=== PATIENT | male | born 1950 | race Caucasian/White ===

== ENCOUNTER 2023-03-04 18:34 | Inpatient (IN) | payer MEDICARE, OTHER, SELFPAY ==
[2023-03-04] VITALS (11 sets, daily range): BP systolic 166–191; BP diastolic 97–133; PULSE 94–147; RESP 16–40; TEMP 36.4–36.6; O2SAT 94–99; BMI 43.0; BMI 44.9
--- NOTE | 2023-03-04 18:52 | ED.VIS.DYS ---
HPI History of Present Illness Chief Complaint: Shortness of Breath [facility] Medical History (Updated 03/04/23 @ 22:[address] Melita Alfaro MD) Aortic disease Carotid arterial disease Former tobacco use HLD (hyperlipidemia) HTN (hypertension) Morbid obesity EMANI on CPAP PAF (paroxysmal atrial fibrillation) Home Medications amlodipine 10 mg tablet 10 mg PO DAILY 03/04/23 [History Last Taken Unknown] aspirin 325 mg capsule 325 mg PO DAILY 03/04/23 [History Last Taken Unknown] furosemide 20 mg tablet 20 mg PO QODAY 03/04/23 [History Last Taken Unknown] metoprolol succinate 25 mg tablet,extended release 24 hr 50 mg PO DAILY 03/04/23 [History Last Taken Unknown] psyllium husk 0.4 gram capsule (Metamucil) 0.4 g PO DAILY 03/04/23 [History Last Taken Unknown] Allergy/AdvReac Type Severity Reaction Status Date / Time Penicillins Allergy Mild Other Verified 03/04/23 19:18 Family History (Updated 03/04/23 @ 22:[address] Melita Alfaro MD) Mother CAD (coronary artery disease) Heart disease Hypertension Myocardial infarction Father CAD (coronary artery disease) Heart disease Hypertension Myocardial infarction Brother CAD (coronary artery disease) Heart disease Hypertension Myocardial infarction Surgical History (Updated 03/04/23 @ 22:[address] Melita Alfaro MD) History of cholecystectomy History of endovascular stent graft for abdominal aortic aneurysm History of left-sided carotid endarterectomy History of total left knee replacement Social History (Updated 03/04/23 @ 22:[address] Melita Alfaro MD) household members: spouse Smoking Status: Former smoker how long ago did patient quit smoking: Quit 2005, smoked 3 ppd from 15 y/o until quit. alcohol intake: never substance use type: does not use EXAM Physical Exam Const Vital Signs: 03/04/23 18:37 03/04/23 18:40 03/04/23 19:13 Temperature 97.6 F L Temperature Source Temporal Pulse Rate 104 H Respiratory Rate 21 H Respiratory Effort Short of Breath Labored Respiratory Depth Shallow Respiratory Pattern Tachypnea Blood Pressure 166/113 H Blood Pressure Mean 130 Pulse Ox 99 Oxygen Delivery Method Non-Rebreather Non-Rebreather Bi-pap Oxygen Flow Rate (L/min) 15 Fraction of Inspired Oxygen (FIO2) 40 03/04/23 19:16 03/04/23 19:08 03/04/23 19:45 Temperature 97.8 F Temperature Source Temporal Pulse Rate 103 H 110 H Respiratory Rate 29 H 28 H Respiratory Effort Respiratory Depth Respiratory Pattern Blood Pressure 175/121 H 187/102 H Blood Pressure Mean 139 123 Pulse Ox 95 94 95 Oxygen Delivery Method Bi-pap Oxygen Flow Rate (L/min) Fraction of Inspired Oxygen (FIO2) 40 03/04/23 20:30 03/04/23 21:15 03/04/23 21:33 Temperature Temperature Source Pulse Rate 97 101 H Respiratory Rate 22 H 18 Respiratory Effort Respiratory Depth Respiratory Pattern Blood Pressure 182/101 H 184/111 H Blood Pressure Mean 117 135 Pulse Ox 97 99 98 Oxygen Delivery Method Oxygen Flow Rate (L/min) Fraction of Inspired Oxygen (FIO2) 03/04/23 21:40 03/04/23 21:15 03/04/23 22:15 Temperature Temperature Source Pulse Rate 94 Respiratory Rate 16 Respiratory Effort Respiratory Depth Respiratory Pattern Blood Pressure 182/97 H Blood Pressure Mean 117 Pulse Ox 96 98 97 Oxygen Delivery Method Nasal Cannula Bi-pap Oxygen Flow Rate (L/min) 4 Fraction of Inspired Oxygen (FIO2) 30 MDM MDM MDM Narrative Medical decision making narrative: HISTORY OF PRESENT ILLNESS: 73-year-old male here with shortness of breath, cough. Notes acute onset of shortness of breath earlier this afternoon. States he has no chest pain. No bleeding diathesis. Does note lower extremity edema that is worse. Notes paroxysmal nocturnal dyspnea. Denies history of heart failure or heart attack. The patient denies recent surgery in the last 4 weeks or immobilization in the last 3 days, denies previous diagnosis of DVT or PE, hemoptysis, unilateral leg swelling or malignancy with treatment the last 6 months or palliative. No estrogen use noted. REVIEW OF SYSTEMS: Pertinent positives: Shortness of breath, lower extremity edema, cough Pertinent negatives: Chest pain, unilateral leg swelling or hemoptysis PHYSICAL EXAM: Nursing triage notes reviewed, Vital signs reviewed Constitutional: please see mdm HENT: MMM Eyes: Pupils equal round and reactive to light, Extraocular muscles intact Neck: No stridor, no JVD, full neck ROM Lungs: Acute respiratory distress, increased work of breathing, conversational dyspnea, tripoding, rales noted bilaterally no wheezing Heart: Regular rate and rhythm, No murmurs, No rubs and No gallops, 2+ distal pulses (radial, femoral, posterior tibial) in all extremities Abdomen: Soft, there is no tenderness, rigidity, rebound or guarding, no obvious peritoneal signs, no palpable pulsatile abdominal masses, no auscultated abdominal bruit : No CVAT Extremities: 2+ pitting edema in bilateral lower extremities Neuro: No focal neurological deficits, cranial nerves II through XII intact, 5/5 strength in all extremities. Intact sensation to light touch in all extremities, 2+ reflexes bilateral patella tendons. Normal gait. No ataxia. Skin: No rash or lesions noted MEDICAL DECISION MAKING: Chief Complaint: [Shortness of breath External records reviewed: No recent cardiac catheterizations echocardiograms are just as noted Factors affecting care: EMANI Social determinants of health: none History obtained from others: Patient's Consults: Internal medicine MDM Narrative: Patient was initially hypertensive, tachypneic requiring nonrebreather for appropriate oxygenation. He had increased work of breathing he had stenting accessory muscle use acute respiratory distress or rales noted bilateral lung bases. I considered the following differential diagnosis: CHF exacerbation, COVID, flu, pneumonia, ACS, arrhythmia, PE, anemia Patient is low risk Wells score in addition to this he had focal lung findings which makes PE less likely. Patient for D-dimer or CT at this time. Given his increased work of breathing he was placed on BiPAP immediately. He was given a dose of 60 mg IV Lasix for diuresis ALL IMAGES (IF OBTAINED) HAVE BEEN PERSONALLY REVIEWED AND INTERPRETED BY MYSELF. Chest x-ray was read reviewed by myself and shows bilateral pulmonary edema consistent with likely heart failure exacerbation EKG with sinus tachycardia, normal axis, prolonged QT interval, no obvious ischemic changes High-sensitivity troponin is negative, no evidence of myocardial ischemia VBG without evidence of respiratory acidosis or significant CO2 retention BNP elevated consistent with increased volume overload, myocyte stretch BMP shows no significant electrolyte abnormalities, noted PAOLA The synthesis the patient's history, physical exam labs images are consistent with acute respiratory failure secondary to likely CHF exacerbation. Given presence of BiPAP patient likely needs PCU for further diuresis. The patient and/or family, caregivers express understanding. The patient and/or family, caregivers agrees with the plan. Shared decision making: I will have a discussion with the patient and or visitors regarding risk/benefits of further testing or admission. They will be made aware of of the risk/benefits inherent in this decision they will be given the opportunity to voice understanding. Total critical care time today provided was at least 35 minutes. This excludes separately billable procedures. Critical care time (if documented) is secondary to the patient having high probability of clinically significant/life threatening deterioration in the patient's condition which required my urgent intervention. Impression: 1. Acute respiratory failure 2. Tachycardia 3. Tachypnea 4. Hypertension 5. Acute CHF exacerbation 6. Acute kidney injury Dispo: admit To PCU Lab Data Labs: Laboratory Results - last 24 hr 03/04/23 19:05 WBC 10.9 RBC 4.03 L Hgb 11.3 L Hct 36.1 L MCV 89.6 MCH 28.0 MCHC 31.3 L RDW Std Deviation 43.9 RDW Coeff of Frankie 13.3 Plt Count 366 MPV 9.5 Immature Gran % (Auto) 0.500 Neut % (Auto) 70.8 H Lymph % (Auto) 13.7 L [place] % (Auto) 9.6 Eos % (Auto) 4.6 Baso % (Auto) 0.8 Absolute Neuts (auto) 7.8 H Absolute Lymphs (auto) 1.50 Nucleated RBC % 0 Sodium 136 Potassium 3.7 Chloride 103 Carbon Dioxide 28.0 Anion Gap 5 BUN 26 H Creatinine 2.10 H Estim Creat Clear Calc 34.39 Est GFR (MDRD) Af Amer 40 L Est GFR (MDRD) Non-Af 33 L BUN/Creatinine Ratio 12.4 Glucose 126 H Calcium 9.1 Troponin I High Sens 47 B-Natriuretic Peptide 281.6 H ABG Data ABG results: ABG 03/04/23 19:07 Specimen Type KARLOS Sample Site Not entered O2 % 40.0 VBG pH 7.37 VBG pO2 58 H VBG HCO3 29 H VBG Total CO2 30 VBG O2 Sat (Calc) 89 H VBG Base Excess 3 POC Mix VBG pCO2 Pt Tmp 49.6 O2 Delivery Device BiPAP Clinical Comments 12. 6. 40% Radiography Diagnostic Testing: Clinical Impression(s) from Imaging Studies Chest X-Ray 03/04/23 19:10 IMPRESSION: Bilateral patchy airspace and interstitial opacities concerning for infection and/or edema. Electronically Signed: Kev Banuelos MD at 20:05 EST , Discharge Plan Triage Chief Complaint: Shortness of Breath ED Provider: Smith Whitney Dx/Rx/DC Orders Primary Care Provider: Juan Walker
--- NOTE | 2023-03-04 18:59 | EKG12_ITS ---
Test Reason : SOB Blood Pressure : / mmHG Vent. Rate : 108 BPM Atrial Rate : 108 BPM P-R Int : 146 ms QRS Dur : 082 ms QT Int : 364 ms P-R-T Axes : 059 -04 049 degrees QTc Int : 487 ms Sinus tachycardia Nonspecific ST abnormality Abnormal ECG Confirmed by EDUARDO FINNEY, LUZ MARINA ([id number]), field map editor NAKITA GARDNER ([id number]) on 03/08/2023 2:02:03 P M Referred By: Confirmed By:DALE CLARK MD
--- NOTE | 2023-03-04 19:10 | RAD_ITS ---
INDICATION: SOB EXAMINATION/TECHNIQUE:
[2023-03-04 19:11] LABS: Blood Gas Specimen Type VEN; O2 Delivery Device BiPAP; SITE Not entered; VBG BASE EXCESS 3 mmol/L (-1.0-3.5); VBG Bicarbonate 29 mmol/L (22-26); VBG PO2 58 mmHg (25-40); VBG SO2 89 % (50-70); VBG TCO2 30 mmol/L (23-33); VBG pCO2 49.6 mmHg (41-51); VBG pH 7.37 (7.32-7.42)
[2023-03-04 19:14] LABS: Absolute Neutrophil Count 7.8 X10^3/uL (2.0-7.7); Basophil# 0.09 X10^3/uL; Basophil% 0.8 % (0-1); Eosinophils% 4.6 % (0-5); Hematocrit 36.1 % (40-54); Hemoglobin 11.3 g/dL (13.0-16.5); Lymphocyte % 13.7 % (19-41); Mean Corp Hgb Conc 31.3 g/dL (32-36); Mean Corpuscular Volume 89.6 fL (80-94); Mean Platelet Vol. 9.5 fl (6.2-12.0); Monocyte# 1.05 X10^3/uL; Monocyte% 9.6 % (0-10); NRBC Flagged by Analyzer 0 % (0-5); Neutrophil # 7.75 X10^3/uL (2.7-7.7); Neutrophil % 70.8 % (47-70); Platelet Count 366 K/mm3 (150-450); RBC Distribution Width CV 13.3 % (11.6-14.6); RBC Distribution Width SD 43.9 fl (35.1-43.9); Red Blood Count 4.03 M/mm3 (4.6-6.2); White Blood Count 10.9 K/mm3 (4.4-11.0)
[2023-03-04 19:41] LABS: Anion Gap 5 (5-15); BNP,B-Type NATRIURETIC PEPTIDE 281.6 pg/mL (0-100); BUN 26 mg/dL (7-18); BUN/Creat Ratio 12.4 RATIO (10-20); Calcium,Total 9.1 mg/dL (8.5-10.1); Chloride 103 mmol/L (98-107); EST Glomerular Filtration Rate 33 mL/min (>60); Est Glom Filt Rate - Afr Amer 40 mL/min (>60); Estimated Creatinine Clearance 34.39 ml/min; Glucose 126 mg/dL (74-106); Potassium 3.7 mmol/L (3.5-5.1); Sodium Level 136 mmol/L (136-145); Troponin-I HS 47 pg/mL (3.0-78.0)
[2023-03-04] MEDS: Furosemide 100 MG/10 ML Vial 60 MG IV (20:38)
--- NOTE | 2023-03-04 21:29 | PCM.HP.STD ---
HPI - General General Date of Admission: 03/04/23 Date of Service: 03/04/23 Chief Complaint: Dyspnea, sudden. HPI Narrative The patient is a 73 y/o M w/ PMHx: Former heavy tobacco use, Carotid disease/Aortic disease s/p L CEA and aortic stent placement, Morbid obesity, HTN, HLD, PAF, EMANI on CPAP who presents to the [facility] ED on 03/04/23 with history of significant onset acute dyspnea earlier in the afternoon with mild nonproductive cough with increased lower extremity swelling as well as paroxysmal nocturnal dyspnea and orthopnea with no associated chest discomfort prompting eventual ED evaluation. In the ED per ED physician patient in evident respiratory distress with increased work of breathing, conversational dyspnea, tripoding, rales prompting immediate transition to BiPAP. Workup in the ED included T97.6, heart rate 106, BP initially 166/113 with most recent repeat 182/101, respiratory rate 21, initially 99% presenting on a nonrebreather with 15 L transition eventually to BiPAP noted to be 95% on BiPAP with 40% FiO2 chest x-ray with bilateral patchy airspace and interstitial opacities concerning for infection and/or edema, CBC with WBC 10.9, hemoglobin 11.3, MCV 89.6, platelet 366 with left shift, VBG with pO2 58, bicarb 29, O2 saturation 89% on BiPAP, BMP with BUN/creatinine 26/2.10, glucose 126, troponin 47, BNP 281.6, rapid SARS COVID and influenza antigens negative, EKG with sinus tachycardia with no acute evidence of ischemia. In the ED patient ministered Lasix 60 mg IV x 1. Following diuresis and prolonged BiPAP patient feels significantly improved and is able to come off of BiPAP with significant respiratory improvement. [facility] Medical History (Updated 03/04/23 @ 22:[address] Melita Alfaro MD) Aortic disease Carotid arterial disease Former tobacco use HLD (hyperlipidemia) HTN (hypertension) Morbid obesity EMANI on CPAP PAF (paroxysmal atrial fibrillation) Home Medications amlodipine 10 mg tablet 10 mg PO DAILY 03/04/23 [History Last Taken Unknown] aspirin 325 mg capsule 325 mg PO DAILY 03/04/23 [History Last Taken Unknown] furosemide 20 mg tablet 20 mg PO QODAY 03/04/23 [History Last Taken Unknown] metoprolol succinate 25 mg tablet,extended release 24 hr 50 mg PO DAILY 03/04/23 [History Last Taken Unknown] psyllium husk 0.4 gram capsule (Metamucil) 0.4 g PO DAILY 03/04/23 [History Last Taken Unknown] Allergy/AdvReac Type Severity Reaction Status Date / Time Penicillins Allergy Mild Other Verified 03/04/23 19:18 Family History (Updated 03/04/23 @ 22:[address] Melita Alfaro MD) Mother CAD (coronary artery disease) Heart disease Hypertension Myocardial infarction Father CAD (coronary artery disease) Heart disease Hypertension Myocardial infarction Brother CAD (coronary artery disease) Heart disease Hypertension Myocardial infarction Surgical History (Updated 03/04/23 @ 22:[address] Melita Alfaro MD) History of cholecystectomy History of endovascular stent graft for abdominal aortic aneurysm History of left-sided carotid endarterectomy History of total left knee replacement Social History (Updated 03/04/23 @ 22:[address] Melita Alfaro MD) household members: spouse Smoking Status: Former smoker how long ago did patient quit smoking: Quit 2005, smoked 3 ppd from 15 y/o until quit. alcohol intake: never substance use type: does not use ROS ROS Narrative Admission Review of Systems: CONSTITUTIONAL: No weight loss, fever, chills, + weakness or fatigue. HEENT: Eyes: No visual loss, blurred vision, double vision or yellow sclerae. Ears, Nose, Throat: No hearing loss, sneezing, congestion, runny nose or sore throat. SKIN: No rash or itching, lesions, wounds. CARDIOVASCULAR: + Orthopnea, edema, paroxysmal nocturnal dyspnea. No chest pain, chest pressure or chest discomfort, palpitations, syncopal events. RESPIRATORY: + Shortness of breath, cough without marked sputum. No wheezing, hemoptysis. GASTROINTESTINAL: No anorexia, nausea, vomiting or diarrhea, abdominal pain, melena, BRBPR. GENITOURINARY: No dysuria, frequency, urgency or retention. NEUROLOGICAL: No headache, dizziness, syncope, paralysis, ataxia, numbness or tingling in the extremities, focal weakness, change in bowel or bladder control, seizure. MUSCULOSKELETAL: + muscle, back pain, joint pain or stiffness. HEMATOLOGIC: No anemia, + easy bleeding/bruising. LYMPHATICS: No enlarged nodes. No history of splenectomy. PSYCHIATRIC: No history of depression or anxiety. ENDOCRINOLOGIC: No reports of sweating, cold or heat intolerance. No polyuria or polydipsia. ALLERGIES: No history of asthma, hives, eczema or rhinitis. Vital Signs Vital Signs Vital Signs: 03/04/23 18:37 03/04/23 18:40 03/04/23 19:13 Temperature 97.6 F L Temperature Source Temporal Pulse Rate 104 H Respiratory Rate 21 H Respiratory Effort Short of Breath Labored Respiratory Depth Shallow Respiratory Pattern Tachypnea Blood Pressure 166/113 H Blood Pressure Mean 130 Pulse Ox 99 Oxygen Delivery Method Non-Rebreather Non-Rebreather Bi-pap Oxygen Flow Rate (L/min) 15 Fraction of Inspired Oxygen (FIO2) 40 03/04/23 19:16 03/04/23 19:08 03/04/23 19:45 Temperature 97.8 F Temperature Source Temporal Pulse Rate 103 H 110 H Respiratory Rate 29 H 28 H Respiratory Effort Respiratory Depth Respiratory Pattern Blood Pressure 175/121 H 187/102 H Blood Pressure Mean 139 123 Pulse Ox 95 94 95 Oxygen Delivery Method Bi-pap Oxygen Flow Rate (L/min) Fraction of Inspired Oxygen (FIO2) 40 03/04/23 20:30 03/04/23 21:15 Temperature Temperature Source Pulse Rate 97 Respiratory Rate 22 H Respiratory Effort Respiratory Depth Respiratory Pattern Blood Pressure 182/101 H Blood Pressure Mean 117 Pulse Ox 97 99 Oxygen Delivery Method Oxygen Flow Rate (L/min) Fraction of Inspired Oxygen (FIO2) Weight Weight: 316 lb 12.868 oz Body Mass Index (BMI) 43.0 Physical Exam Narrative Physical Examination: General: Awake, alert, oriented x 3 and cooperative, seated upright in the ED bed significantly improved since initial ED arrival as he had been in respiratory distress requiring immediate BiPAP with tripoding, conversational dyspnea but now is off BiPAP and able to speak in sentences with no evidence of respiratory distress. Skin: Normal color, normal turgor, no icterus, no cyanosis except for bilateral lower extremity mild venous stasis disease, occasional staged ecchymoses HEENT: AT/NC, EOMI, PERRLA, mildly dry MM with recent BiPAP removal, no carotid bruits, +JVD noted. Lungs: Diminished, greater bases, bilateral rales noted, respiratory status significantly improved, respiratory distress had been noted upon admission with hypoxic respiratory failure, currently now transitioning off BiPAP with marked improvement with no recurrent tripoding or conversational dyspnea or increased work of breathing noted, no rhonchi or wheezing. Heart: Currently regular rate and rhythm; no gallop, rub audible. Abdomen: Soft, morbidly obese, NTTP, distant normal BS, unable to discern HSM or marked distention well given morbidly obese status. Extremities: No cyanosis, no clubbing, notable pedal to proximal pisano pitting edema bilaterally. Neurological: Patient awake, alert, oriented as noted, cognitive function intact; pupils equally reactive to light and accommodation, cranial nerves grossly normal, moving all 4 extremities, no focal deficits, strength improving, moderately to severely global decrease, significantly improved since respiratory failure/distress resolving. Psychiatric: Affect appears fatigued, no acute evidence of depressive or anxiety feelings. Results Lab / Micro Data 03/04/23 19:05 03/04/23 19:05 Labs: Laboratory Results - last 24 hr 03/04/23 19:05: WBC 10.9, RBC 4.03 L, Hgb 11.3 L, Hct 36.1 L, MCV 89.6, MCH 28.0, MCHC 31.3 L, RDW Std Deviation 43.9, RDW Coeff of Frankie 13.3, Plt Count 366, MPV 9.5, Immature Gran % (Auto) 0.500, Neut % (Auto) 70.8 H, Lymph % (Auto) 13.7 L, [place] % (Auto) 9.6, Eos % (Auto) 4.6, Baso % (Auto) 0.8, Absolute Neuts (auto) 7.8 H, Absolute Lymphs (auto) 1.50, Nucleated RBC % 0, Sodium 136, Potassium 3.7, Chloride 103, Carbon Dioxide 28.0, Anion Gap 5, BUN 26 H, Creatinine 2.10 H, Estim Creat Clear Calc 34.39, Est GFR (MDRD) Af Amer 40 L, Est GFR (MDRD) Non-Af 33 L, BUN/Creatinine Ratio 12.4, Glucose 126 H, Calcium 9.1, Troponin I High Sens 47, B-Natriuretic Peptide 281.6 H Micro: Microbiology 03/04/23 19:05 Nasal Secretion SARS-CoV-2 & FLU Antigen (Rapid) - Final ABG Data ABG results: ABG 03/04/23 19:07 Specimen Type KARLOS Sample Site Not entered O2 % 40.0 VBG pH 7.37 VBG pO2 58 H VBG HCO3 29 H VBG Total CO2 30 VBG O2 Sat (Calc) 89 H VBG Base Excess 3 POC Mix VBG pCO2 Pt Tmp 49.6 O2 Delivery Device BiPAP Clinical Comments 12. 6. 40% Imagaing Radiology Impression Chest X-Ray 03/04/23 19:10 IMPRESSION: Bilateral patchy airspace and interstitial opacities concerning for infection and/or edema. Electronically Signed: Kev Banuelos MD at 20:05 EST , Assessment & Plan Assessment/Plan (1) Heart failure: (2) Acute hypoxic respiratory failure: PLAN: Plan The patient is a 73 y/o M w/ PMHx: Former heavy tobacco use, Carotid disease/Aortic disease s/p L CEA and aortic stent placement, Morbid obesity, HTN, HLD, PAF, EMANI on CPAP who presents to the [facility] ED on 03/04/23 with history of significant onset acute dyspnea earlier in the afternoon with mild nonproductive cough with increased lower extremity swelling as well as paroxysmal nocturnal dyspnea and orthopnea with no associated chest discomfort prompting eventual ED evaluation. In the ED per ED physician patient in evident respiratory distress with increased work of breathing, conversational dyspnea, tripoding, rales prompting immediate transition to BiPAP. #1. Acute Hypoxic Respiratory Failure suspected secondary to Acute Decompensated HF, Unclear type; low suspicion PNA: Will admit to PCU given notable improvement on BIPAP in the ED, will maintain on cardiac telemetry, obtain cardiac enzyme series, obtain serial EKGs, initiate IV lasix diuresis, monitor I/Os, continue medical therapy w/ asa, add statin, continue BB, obtain TSH and magnesium level, obtain ECHO, procalcitonin requested and if any inclination of infectious etiology if appropriate will start abx therapy. #2. PAOLA versus Acute Renal Insufficiency versus Chronic Kidney Disease Stage III unclear subtype as patient with no clear baseline labs in the system: Admission BUN/Cr 26/2.10, baseline renal function as noted unknown with GFR at this point 33 and creatinine clearance 34.39 this certainly could be chronic but unclear, will hold nephrotoxic medication aside from diuresis if necessary with repeat CMP in a.m. to further elucidate if this is chronic or acute, repeat BMP in AM. #3. PAF: We will continue patient home metoprolol regimen, from outpatient list does not appear the patient is chronically anticoagulated, unclear specific etiology, until ascertain will continue just chemoprophylaxis as noted. #4. Hypertension: Continue home regimen including amlodipine, metoprolol, IV Lasix as noted, PRN hydralazine. #5. Hyperlipidemia: Not on statin therapy, adding given presentation as noted, FLP in AM. #6. Suspected chronic normocytic anemia: Admission hemoglobin 11.3, MCV 89.6, unclear baseline however, will trend CBC and further investigate pending trend. #7. Hyperglycemia, mild: Admission glucose 126, minimally elevated, will repeat CMP in a.m. if further elevated may consider hemoglobin A1c assessment. #8. Morbid Obesity: Weight loss and lifestyle changes encouraged, nutrition consulted. #9. EMANI: Usually uses CPAP nightly, given improvement will transition off BIPAP to q HS CPAP. #10. Former heavy tobacco use: Encourage continued tobacco cessation. #11. DVT Prophylaxis: Heparin. #12. CODE status: Patient THEODORA is his who is present and living will is currently in place. Discussed CODE status at length including difference between FULL code, DNR-CCA and DNR-CC status. Following discussions about the differences in these status, requested Full Code status. Advanced Care Planning Face to Face Time: 16 minutes. Charges/Coding Visit Charges Inpatient E&M: 51405 Init Hosp L3 Procedures Hospitalists Procedures: 34845 Advncd Care Plan 30 Min
--- NOTE | 2023-03-04 21:40 | CPS ---
pt placed on 4 l/m via nc per dr castro
--- NOTE | 2023-03-04 22:52 | ECHOD_ITS ---
Reason For Study: CHF Procedure This was a 2D Doppler, Color Flow transthoracic echocardiogram. Exam performed portable in ICU/CCU. Left Ventricle Normal LV size. The estimated ejection fraction is 65 %. Unable to assess diastolic dysfunction. No regional wall motion abnormalities noted. Right Ventricle Normal RV size. Normal systolic function. Atria Normal left atrium. Normal right atrium. No doppler evidence for ASD. Mitral Valve There is severe mitral annular calcification. There is no mitral valve stenosis. No mitral valve insufficiency. Tricuspid Valve There is no tricuspid stenosis. Trivial tricuspid valve insufficiency. Unable to estimate RV systolic pressure due to insufficient tricuspid regurgitant envelope. Aortic Valve Moderate diffuse aortic valve thickening. Mild aortic stenosis. No aortic valve insufficiency. Pulmonic Valve There is no pulmonic valvular stenosis. No pulmonic valve insufficiency. Great Vessels Normal aortic root. Pericardium/Pleural No pericardial effusion. MMode/2D Measurements & Calculations LVIDd: 3.7 cm IVSd: 1.8 cm LVOT diam: 2.1 cm LVIDs: 2.5 cm LVPWd: 1.4 cm LVOT area: 3.5 cm2 RVDd: 3.8 cm FS: 33.8 % Ao root diam: 2.9 cm LAV(MOD-bp): 79.7 ml LA A4 area: 27.7 cm2 LAV(MOD-bp) Indexed: 31.3 ml/m2 LAV(MOD-sp2): 67.5 ml LAV(MOD-sp4): 91.1 ml LA dimension(2D): 4.5 cm TAPSE: 2.6 cm RA A4 area: 18.4 cm2 Time Measurements MV dec time: 0.28 sec Doppler Measurements & Calculations MV E max jay: 124.3 cm/sec Lat Peak E' Jay: 8.2 cm/sec Med Peak E' Jay: 6.3 cm/sec MV A max jay: 146.9 cm/sec E/E' lat: 15.1 E/E' med: 19.7 MV E/A: 0.85 MV V2 max: 164.6 cm/sec MV dec slope: 441.0 cm/sec2 Ao V2 max: 247.3 cm/sec MV max P.8 mmHg Ao max P.5 mmHg MV V2 mean: 120.0 cm/sec Ao V2 mean: 185.4 cm/sec MV mean P.2 mmHg Ao mean P.7 mmHg MV V2 VTI: 40.9 cm Ao V2 VTI: 51.8 cm MVA(VTI): 2.1 cm2 AV (velocity ratio): 0.48 EMILY(I,D): 1.7 cm2 EMILY(V,D): 1.6 cm2 LV V1 max: 113.7 cm/sec SV(LVOT): 86.6 ml PA V2 max: 89.9 cm/sec LV V1 max P.2 mmHg LV V1 mean P.1 mmHg LV V1 mean: 84.2 cm/sec LV V1 VTI: 24.6 cm TR max jay: 331.5 cm/sec TR max P.0 mmHg ECHO/Echo Complete Interpretation Summary The estimated ejection fraction is 65 %. Unable to assess diastolic dysfunction. Mild aortic stenosis. Ordering Physician: Melita Alfaro Referring Physician: Juan Walker Performed By: Greta Beasley, JR, RVT
[2023-03-04] MEDS: Metoprolol(XL)Succ 50 MG Tablet PO (23:35)
[2023-03-04 23:59] LABS: Magnesium 2.4 mg/dL (1.6-2.6)
[2023-03-05] VITALS (11 sets, daily range): BP systolic 134–204; BP diastolic 84–104; PULSE 79–110; RESP 16–18; TEMP 36.3–36.9; O2SAT 95–99; BMI 44.8
[2023-03-05] LABS: Troponin-I HS 61 pg/mL (3.0-78.0)
[2023-03-05 00:06] LABS: Procalcitonin 0.09 ng/mL (0.00-0.09)
--- NOTE | 2023-03-05 01:02 | EKG12_ITS ---
Test Reason : Blood Pressure : / mmHG Vent. Rate : 097 BPM Atrial Rate : 097 BPM P-R Int : 166 ms QRS Dur : 080 ms QT Int : 392 ms P-R-T Axes : 052 -13 045 degrees QTc Int : 497 ms Normal sinus rhythm Nonspecific ST abnormality Prolonged QT Abnormal ECG No previous ECGs available Confirmed by JENNIFER FINNEY, MEDINA ([id number]), editorial clerk NAKITA GARDNER ([id number]) on 03/09/2023 11:19:44 AM Referred By: Confirmed By:MEDINA RODRIGUEZ MD
--- NOTE | 2023-03-05 01:03 | EKG12_ITS ---
Test Reason : Blood Pressure : / mmHG Vent. Rate : 095 BPM Atrial Rate : 095 BPM P-R Int : 162 ms QRS Dur : 082 ms QT Int : 382 ms P-R-T Axes : 042 -13 061 degrees QTc Int : 480 ms Sinus rhythm with Premature supraventricular complexes Prolonged QT Abnormal ECG No previous ECGs available Confirmed by JENNIFER FINNEY, MEDINA ([id number]), slot editor NAKITA GARDNER ([id number]) on 03/09/2023 11:20:20 AM Referred By: Confirmed By:MEDINA RODRIGUEZ MD
[2023-03-05] MEDS: hydrALAZINE 20 MG/ML Vial 10 MG IV ×2 (01:21→06:27)
[2023-03-05 01:52] LABS: Troponin-I HS 68 pg/mL (3.0-78.0)
[2023-03-05 04:16] LABS: Absolute Lymphocyte Count 1.29 X10^3/uL (0.83-4.51); Absolute Neutrophil Count 8.1 X10^3/uL (2.0-7.7); Basophil# 0.09 X10^3/uL; Basophil% 0.8 % (0-1); Eosinophil# 0.42 X10^3/uL; Eosinophils% 3.8 % (0-5); Hematocrit 35.8 % (40-54); Hemoglobin 11.4 g/dL (13.0-16.5); Lymphocyte # 1.29 X10^3/ul (0.83-4.51); Lymphocyte % 11.7 % (19-41); Mean Corp Hgb Conc 31.8 g/dL (32-36); Mean Corpuscular Hgb 28.1 pg (27.0-32.0); Mean Corpuscular Volume 88.4 fL (80-94); Mean Platelet Vol. 8.9 fl (6.2-12.0); Monocyte# 1.06 X10^3/uL; Monocyte% 9.6 % (0-10); NRBC Flagged by Analyzer 0 % (0-5); Neutrophil # 8.13 X10^3/uL (2.7-7.7); Neutrophil % 73.8 % (47-70); Platelet Count 365 K/mm3 (150-450); RBC Distribution Width CV 13.3 % (11.6-14.6); RBC Distribution Width SD 43.2 fl (35.1-43.9); Red Blood Count 4.05 M/mm3 (4.6-6.2)
[2023-03-05 04:42] LABS: ALB/GLOB Ratio 0.7 RATIO (0.9-2.4); AST(SGOT) 15 U/L (15-37); Alanine Aminotransfer ALT/SGPT 16 U/L (16-61); Albumin, Serum 3.3 g/dL (3.2-5.0); Alkaline Phosphatase 103 U/L (45-117); Anion Gap 9 (5-15); BUN 23 mg/dL (7-18); BUN/Creat Ratio 11.2 RATIO (10-20); Calcium,Total 8.4 mg/dL (8.5-10.1); Chloride 103 mmol/L (98-107); Cholesterol 192 mg/dL (200); Creatinine, Serum 2.05 mg/dL (0.70-1.30); EST Glomerular Filtration Rate 34 mL/min (>60); Est Glom Filt Rate - Afr Amer 41 mL/min (>60); Estimated Creatinine Clearance 32.09 ml/min; Globulin 4.8 g/dL (2.2-4.2); Glucose 127 mg/dL (74-106); High Density Lipoprotein 63 mg/dL; Potassium 3.1 mmol/L (3.5-5.1); Protein, Total 8.1 g/dL (6.4-8.2); Sodium Level 140 mmol/L (136-145); Thyroid Stim Hormone (TSH) 1.56 uIU/mL (0.358-3.74); Triglycerides 85 mg/dL; Very Low Density Lipoprotein 17 mg/dL (5-40)
[2023-03-05] MEDS: dilTIAZem 25 MG/5 ML Vial 20 MG IV BOLUS (06:26)
[2023-03-05] MEDS: 0.9% Saline Lock 10 ML Syringe IV (06:27)
[2023-03-05] MEDS: Aspirin 325 MG Tablet PO (09:00)
[2023-03-05] MEDS: amLODIPine 10 MG Tablet PO (09:01)
[2023-03-05] MEDS: Heparin Injection (Vial) 5,000 UNIT/ML VIAL 5000 UNIT SC ×2 (09:01→21:07)
[2023-03-05] MEDS: Furosemide 40 MG/4 ML Vial IV ×2 (09:01→17:15)
[2023-03-05] MEDS: Metoprolol(XL)Succ 50 MG Tablet PO (09:05)
[2023-03-05] MEDS: Potassium Chloride Oral Tablet 20 MEQ 40 MEQ PO (09:05)
--- NOTE | 2023-03-05 12:14 | CASEMGMT ---
RN CM BOOM CRANE OPERATOR CM to room to meet with patient for initial transition planning/care coordination assessment. RN MARY introduced self and role at [facility]. Pt voices understanding and consents to assessment at this time. Pt resting in bed in no distress at this time. @ bedside. Pt is A/O at this time and answers all questions appropriately. Care providers, pharmacy, and demographics verified/updated at this time. PCP: Dr Walker Specialists: Dr Dhaliwal- vascular surgeon in [facility] Pharmacy: [facility] Insurance: Zena GARCIA Prescription Benefit: Yes Living Will/HPOA: Has both LW and HCPOA, who is his , Kristy. He states his brother, Nolberto, is 1st alternative. LNOK: , Kristy. Brother, Nolberto Living Arrangements: Lives w/ in one-story condo w/basement. No steps to enter thru main entrance and 2 thru the garage. Indep w/ADL's. assists w/med mgnt and does most home mgnt tasks. Both get groceries. Transportation: Pt states drives self and states no transportation concerns at this time. also drives. DME: States has the following DME: RTS, grab bars, pulse ox, PAP from [employer] w/3 l/m O2 bleed-in @ HS. Has concentrator only. Does not wear O2 during the day and does not have portability. He uses no DME to ambulate. Pt states no need for further DME at this time. HHC/SNF: No hx of either. Pt is not homebound and would not qualify for HHC. Discussed Pt Link and CCN and pt and are agreeable. Referrals placed. Pt wishes to return home and states has no concerns with going home at time of discharge. CM to follow for increase in home oxygen needs and any further discharge planning/needs. Pt and voice no further concerns/needs at this time. Advised them to ask for CM if any further questions/concerns/needs arise. They voice understanding. PLAN: Home w/spousal support and spousal support. CCN and Pt Link referral's made for CHF. Follow for possible increase in O2 @ discharge. Will need portable O2 sent home w/him if he qualifies for any O2 @ rest or w/exertion. Green sheet placed on pt's chart. Uzma SANDOVAL RN CM
--- NOTE | 2023-03-05 14:59 | PN_ITS ---
Subjective Subjective Patient seen and examined. was by his bedside. He had no complaints. He felt his shortness of breath had improved markedly. He denied any chest pain or palpitations, dizziness, nausea or vomiting or any other symptoms. Review of systems otherwise negative. He has remained hemodynamically stable. Objective Data Objective Data Vital Signs: Vital Signs Temp Pulse Resp BP Pulse Ox O2 Del Method O2 Flow Rate 97.7 F L 94 17 182/88 H 98 Nasal Cannula 3 03/05/23 05:00 03/05/23 09:05 03/05/23 05:00 03/05/23 06:27 03/05/23 10:26 03/05/23 10:26 03/05/23 10:26 FiO2 30 03/04/23 21:15 Oxygen Flow Rate (L/min) 3 Oxygen Delivery Method Nasal Cannula Weight: 302 lb 11.115 oz Body Mass Index (BMI) 44.8 Intake & Output: Intake and Output for Last 24 Hours 03/03/23 03/04/23 03/05/23 23:59 23:59 23:59 Output Total 2250 / 2250 Balance -2250 / -2250 Lab / Micro Data 03/05/23 04:07 03/05/23 04:07 Labs: Laboratory Results - last 24 hr 03/04/23 19:05: WBC 10.9, RBC 4.03 L, Hgb 11.3 L, Hct 36.1 L, MCV 89.6, MCH 28.0, MCHC 31.3 L, RDW Std Deviation 43.9, RDW Coeff of Frankie 13.3, Plt Count 366, MPV 9.5, Immature Gran % (Auto) 0.500, Neut % (Auto) 70.8 H, Lymph % (Auto) 13.7 L, [place] % (Auto) 9.6, Eos % (Auto) 4.6, Baso % (Auto) 0.8, Absolute Neuts (auto) 7.8 H, Absolute Lymphs (auto) 1.50, Nucleated RBC % 0, Sodium 136, Potassium 3 .7, Chloride 103, Carbon Dioxide 28.0, Anion Gap 5, BUN 26 H, Creatinine 2.10 H, Estim Creat Clear Calc 34.39, Est GFR (MDRD) Af Amer 40 L, Est GFR (MDRD) Non-Af 33 L, BUN/Creatinine Ratio 12.4, Glucose 126 H, Calcium 9.1, Troponin I High Sens 47, B-Natriuretic Peptide 281.6 H 03/04/23 23:05: Magnesium 2.4, Troponin I High Sens 61, Procalcitonin 0.09 03/05/23 01:21: Troponin I High Sens 68 03/05/23 04:07: WBC 11.0, RBC 4.05 L, Hgb 11.4 L, Hct 35.8 L, MCV 88.4, MCH 28.1, MCHC 31.8 L, RDW Std Deviation 43.2, RDW Coeff of Frankie 13.3, Plt Count 365, MPV 8.9, Immature Gran % (Auto) 0.300, Neut % (Auto) 73.8 H, Lymph % (Auto) 11.7 L, [place] % (Auto) 9.6, Eos % (Auto) 3.8, Baso % (Auto) 0.8, Absolute Neuts (auto) 8.1 H, Absolute Lymphs (auto) 1.29, Nucleated RBC % 0, Sodium 140, Potassium 3.1 L, Chloride 103, Carbon Dioxide 28.0, Anion Gap 9, BUN 23 H, Creatinine 2.05 H, Estim Creat Clear Calc 32.09, Est GFR (MDRD) Af Amer 41 L, Est GFR (MDRD) Non-Af 34 L, BUN/Creatinine Ratio 11.2, Glucose 127 H, Calcium 8.4 L, Total Bilirubin 0.60, AST 15, ALT 16, Alkaline Phosphatase 103, Total Protein 8.1, Albumin 3.3, Globulin 4.8 H, Albumin/Globulin Ratio 0.7 L, Triglycerides 85, Cholesterol 192, LDL Cholesterol 112, VLDL Cholesterol 17, HDL Cholesterol 63, TSH 1.56 Micro: Microbiology 03/04/23 19:05 Nasal Secretion SARS-CoV-2 & FLU Antigen (Rapid) - Final ABG Data ABG results: ABG 03/04/23 19:07 Specimen Type KARLOS Sample Site Not entered O2 % 40.0 VBG pH 7.37 VBG pO2 58 H VBG HCO3 29 H VBG Total CO2 30 VBG O2 Sat (Calc) 89 H VBG Base Excess 3 POC Mix VBG pCO2 Pt Tmp 49.6 O2 Delivery Device BiPAP Clinical Comments 12. 6. 40% Radiography Diagnostic Testing: Radiology Impression Chest X-Ray 03/04/23 19:10 IMPRESSION: Bilateral patchy airspace and interstitial opacities concerning for infection and/or edema. Electronically Signed: Kev Banuelos MD at 20:05 EST , Echocardiogram 03/04/23 22:52 Interpretation Summary The estimated ejection fraction is 65 %. Unable to assess diastolic dysfunction. Mild aortic stenosis. Ordering Physician: Melita Alfaro Referring Physician: Juan Walker Performed By: Greta Beasley, JR, RVT Physical Exam Const alert, oriented x3 and no apparent distress Constitutional Narrative: obese General Appearance: cooperative and well developed HEENT normocephalic, head/scalp atraumatic, moist oral mucous membranes and oropharynx normal Eyes PERRL and EOMs intact bilaterally Neck no lymphadenopathy and supple Lymph Lymphatic: no lymphadenopathy noted and no lymphedema noted Resp Resp Narrative: mildly diminished breath sounds bibasally, no wheezes or crackles. On 2L of oxygen. Cardio regular rate, regular rhythm, S1 normal heart sound and S2 normal heart sound GI normal to inspection, nondistended, normoactive bowel sounds, soft to palpation and non-tender Extremity normal capillary refill, no clubbing, cyanosis or edema and no calf tenderness General Extremity: no tenderness to palpation of joints or extremities Skin General Skin Exam: no breakdown Neuro CN's II-XII intact bilaterally, no focal motor deficits, no sensory deficits noted and deep tendon reflexes 2+ bilaterally Motor Exam: strength 5/5 throughout Psych thought process normal, cooperative and affect normal Appearance: appropriate Assessment & Plan Assessment/Plan (1) Acute hypoxic respiratory failure: PLAN: Plan #Hypoxia due to probable acute heart failure * Required BiPAP in the ED but now on 2 L of oxygen. * Chest imaging was suggestive of fluid overload. Being diuresed with IV Lasix. * 2D echo ordered showed EF of 65% and unable to assess diastolic dysfunction. No regional wall motion abnormalities, mild aortic stenosis * Titrate oxygen to maintain saturation above 90% * Breathing treatments bronchodilators. #PAOLA vs CKD: Creatinine was 2.10 on admission and is 2.05 today. No baseline creatinine noted. Being genly hdyrated with IVF. Will monitor #Paroxysmal A-fib: On metoprolol. Not anticoagulated. Unclear why. #Hypokalemia: Potassium is 3.1 today. Will replace and trend. #Hypertension: On amlodipine and metoprolol. IV hydralazine as needed. #Hyperlipidemia: On statin. Lipid panel done. #EMANI: On CPAP nightly. #Prophylaxis: On heparin Charges/Coding Visit Charges Inpatient E&M: 01604 Subs Hosp L2
--- NOTE | 2023-03-05 16:04 | CHAPLAIN ---
Type of Pastoral Visit _x__ Initial Visit ___ Follow-up Visit ___ On-call Visit ___ General Patient Visit ___ Spiritual Assessment ___ Family Conference ___ Bereavement ___ Rapid Response ___ Code Blue ___ Other (describe below) Pastoral Care Referral From _x__ Patient ___ Family ___ Nurse ___ Physician ___ Photolithographic Stripper ___ Design Checker ___ Other (describe below) Sacrament/Intervention _x__ Active listening ___ Anointing ___ Zoroastrian ___ Bereavement ___ Communion ___ Triny exploration ___ ___ Life review _x__ Prayer ___ Reconciliation ___ Sacrament of Sick ___ Supportive presence ___ Wedding ___ Other (describe below) Pastoral Comments patient and spouse are in the room; pt speaks about his experience and the feeling of being scared about not being able to breath; pt reports doing better now and is expecting to stay in hospital; pt welcomes presence and prayer
[2023-03-05] MEDS: Atorvastatin Calcium 20 MG Tablet PO (21:07)
[2023-03-06 03:00] VITALS: BP 153/87; PULSE 79; RESP 13; TEMP 36.8; O2SAT 96
[2023-03-06 04:24] LABS: Absolute Neutrophil Count 6.5 X10^3/uL (2.0-7.7); Basophil# 0.06 X10^3/uL; Basophil% 0.7 % (0-1); Eosinophil# 0.39 X10^3/uL; Eosinophils% 4.4 % (0-5); Hematocrit 33.1 % (40-54); Hemoglobin 10.5 g/dL (13.0-16.5); Lymphocyte % 10.1 % (19-41); Mean Corp Hgb Conc 31.7 g/dL (32-36); Mean Corpuscular Hgb 28.7 pg (27.0-32.0); Mean Corpuscular Volume 90.4 fL (80-94); Mean Platelet Vol. 9.4 fl (6.2-12.0); Monocyte# 1.08 X10^3/uL; Monocyte% 12.1 % (0-10); NRBC Flagged by Analyzer 0 % (0-5); Neutrophil # 6.49 X10^3/uL (2.7-7.7); Neutrophil % 72.5 % (47-70); Platelet Count 329 K/mm3 (150-450); RBC Distribution Width CV 13.7 % (11.6-14.6); RBC Distribution Width SD 44.8 fl (35.1-43.9); Red Blood Count 3.66 M/mm3 (4.6-6.2); White Blood Count 8.9 K/mm3 (4.4-11.0)
[2023-03-06 04:36] LABS: Anion Gap 6 (5-15); BUN 29 mg/dL (7-18); BUN/Creat Ratio 12.2 RATIO (10-20); Calcium,Total 8.3 mg/dL (8.5-10.1); Chloride 103 mmol/L (98-107); Creatinine, Serum 2.37 mg/dL (0.70-1.30); EST Glomerular Filtration Rate 29 mL/min (>60); Est Glom Filt Rate - Afr Amer 35 mL/min (>60); Estimated Creatinine Clearance 27.76 ml/min; Glucose 107 mg/dL (74-106); Potassium 3.2 mmol/L (3.5-5.1); Sodium Level 140 mmol/L (136-145)
[2023-03-06 06:00] VITALS: BMI 44.5
[2023-03-06 09:00] VITALS: BP 144/79; PULSE 89; RESP 17; TEMP 36.8; O2SAT 93
[2023-03-06] MEDS: Potassium Chloride Oral Tablet 20 MEQ 40 MEQ PO (09:53)
[2023-03-06] MEDS: Heparin Injection (Vial) 5,000 UNIT/ML VIAL 5000 UNIT SC ×2 (09:54→21:21)
[2023-03-06] MEDS: Aspirin 325 MG Tablet PO (09:54)
[2023-03-06] MEDS: Psyllium 1 PACKET PO (09:54)
[2023-03-06 09:55] VITALS: BP 1360/88; PULSE 92
[2023-03-06] MEDS: Metoprolol(XL)Succ 50 MG Tablet PO (09:55)
[2023-03-06] MEDS: amLODIPine 10 MG Tablet PO (09:57)
--- NOTE | 2023-03-06 11:01 | PN_ITS ---
Subjective Subjective Patient seen and examined. His was by his bedside. He had no active complaints and felt well. Review of systems otherwise negative. He denied any shortness of breath, cough, chest pain or palpitations, dizziness, nausea or vomiting. Review of systems otherwise negative. Objective Data Objective Data Vital Signs: Vital Signs Temp Pulse Resp BP Pulse Ox O2 Del Method O2 Flow Rate 98.3 F 92 17 1360/88 H 93 Room Air 3 03/06/23 09:00 03/06/23 09:55 03/06/23 09:00 03/06/23 09:55 03/06/23 09:00 03/06/23 09:00 03/06/23 03:00 FiO2 30 03/04/23 21:15 Oxygen Flow Rate (L/min) 3 Oxygen Delivery Method Room Air Weight: 301 lb 9.478 oz Body Mass Index (BMI) 44.5 Intake & Output: Intake and Output for Last 24 Hours 03/04/23 03/05/23 03/06/23 23:59 23:59 23:59 Intake Total 340 / 340 100 / 100 Output Total 3200 / 3425 225 / 225 Balance -2860 / -3085 -125 / -125 Lab / Micro Data 03/06/23 03:58 03/06/23 03:58 Labs: Laboratory Results - last 24 hr 03/06/23 03:58: WBC 8.9, RBC 3.66 L, Hgb 10.5 L, Hct 33.1 L, MCV 90.4, MCH 28.7, MCHC 31.7 L, RDW Std Deviation 44.8 H, RDW Coeff of Frankie 13.7, Plt Count 329, MPV 9.4, Immature Gran % (Auto) 0.200, Neut % (Auto) 72.5 H, Lymph % (Auto) 10.1 L, [place] % (Auto) 12.1 H, Eos % (Auto) 4.4, Baso % (Auto) 0.7, Absolute Neuts (auto) 6.5, Absolute Lymphs (auto) 0.90, Nucleated RBC % 0, Sodium 140, Potassium 3.2 L , Chloride 103, Carbon Dioxide 31.0, Anion Gap 6, BUN 29 H, Creatinine 2.37 H, Estim Creat Clear Calc 27.76, Est GFR (MDRD) Af Amer 35 L, Est GFR (MDRD) Non-Af 29 L, BUN/Creatinine Ratio 12.2, Glucose 107 H, Calcium 8.3 L Micro: Microbiology 03/04/23 19:05 Nasal Secretion SARS-CoV-2 & FLU Antigen (Rapid) - Final Radiography Diagnostic Testing: Radiology Impression Echocardiogram 03/04/23 22:52 Interpretation Summary The estimated ejection fraction is 65 %. Unable to assess diastolic dysfunction. Mild aortic stenosis. Ordering Physician: Melita Alfaro Referring Physician: Juan Walker Performed By: Greta Beasley, JR, RVT Physical Exam Const alert, oriented x3 and no apparent distress Constitutional Narrative: obese General Appearance: cooperative and well developed HEENT normocephalic, head/scalp atraumatic, moist oral mucous membranes and oropharynx normal Eyes PERRL and EOMs intact bilaterally Neck no lymphadenopathy and supple Lymph Lymphatic: no lymphadenopathy noted and no lymphedema noted Resp Resp Narrative: mildly diminished breath sounds bibasally, no wheezes or crackles. On room air Cardio regular rate, regular rhythm, S1 normal heart sound and S2 normal heart sound GI normal to inspection, nondistended, normoactive bowel sounds, soft to palpation and non-tender Extremity normal capillary refill, no clubbing, cyanosis or edema and no calf tenderness General Extremity: no tenderness to palpation of joints or extremities Skin General Skin Exam: no breakdown Neuro CN's II-XII intact bilaterally, no focal motor deficits, no sensory deficits noted and deep tendon reflexes 2+ bilaterally Motor Exam: strength 5/5 throughout Psych thought process normal, cooperative and affect normal Appearance: appropriate Assessment & Plan Assessment/Plan (1) Acute hypoxic respiratory failure: PLAN: Plan #Hypoxia due to probable acute heart failure with preserved EF * now on room air. * Chest imaging was suggestive of fluid overload. Being diuresed with IV Lasix. * 2D echo ordered showed EF of 65% and unable to assess diastolic dysfunction. No regional wall motion abnormalities, mild aortic stenosis * Titrate oxygen to maintain saturation above 90% * Breathing treatments bronchodilators. * IV Lasix discontinued today and patient being switched to p.o. Lasix. #PAOLA vs CKD: * No baseline creatinine noted. Cr today is up to 2.37 from 2.05 yesterday./It is seeming like he has CKD stage III. * IV Lasix may have also played a role in portion of the creatinine up. * IV Lasix DC'd today. Will switch to p.o. Lasix and trend creatinine. #Paroxysmal A-fib: On metoprolol. Not anticoagulated. Unclear why. #Hypokalemia: Potassium is 3.2 today. Will replace and trend. #Hypertension: On amlodipine and metoprolol. IV hydralazine as needed. #Hyperlipidemia: On statin. Lipid panel done. #EMANI: On CPAP nightly. #Prophylaxis: On heparin Disposition: for likely dc tomorrow Charges/Coding Visit Charges Inpatient E&M: 19285 Subs Hosp L2
[2023-03-06] MEDS: Furosemide 40 MG Tablet PO (12:22)
[2023-03-06] MEDS: 0.9% Saline Lock 10 ML Syringe IV (14:53)
[2023-03-06 15:00] VITALS: BP 142/82; PULSE 83; RESP 16; TEMP 36.8; O2SAT 93
--- NOTE | 2023-03-06 16:48 | NURSING ---
patient arrived to PCU 115 in stable condition. sitting up in chair with visitors in room. has already ordered dinner. denies any additional needs at this time
[2023-03-06 21:15] VITALS: BP 168/74; PULSE 84; RESP 16; TEMP 36.3; O2SAT 93
[2023-03-06] MEDS: Atorvastatin Calcium 20 MG Tablet PO (21:21)
[2023-03-06 21:57] VITALS: O2SAT 93
[2023-03-07 03:15] VITALS: BP 147/60; PULSE 85; RESP 16; TEMP 36.3; O2SAT 95
[2023-03-07 03:52] VITALS: BMI 44.6
[2023-03-07 06:41] LABS: Basophil# 0.06 X10^3/uL; Basophil% 0.7 % (0-1); Eosinophil# 0.49 X10^3/uL; Eosinophils% 5.9 % (0-5); Hematocrit 31.8 % (40-54); Hemoglobin 10.1 g/dL (13.0-16.5); Lymphocyte % 10.8 % (19-41); Mean Corp Hgb Conc 31.8 g/dL (32-36); Mean Corpuscular Hgb 28.5 pg (27.0-32.0); Mean Corpuscular Volume 89.8 fL (80-94); Monocyte# 0.88 X10^3/uL; Monocyte% 10.6 % (0-10); NRBC Flagged by Analyzer 0 % (0-5); Neutrophil # 5.95 X10^3/uL (2.7-7.7); Neutrophil % 71.6 % (47-70); Platelet Count 317 K/mm3 (150-450); RBC Distribution Width CV 13.4 % (11.6-14.6); RBC Distribution Width SD 44.2 fl (35.1-43.9); Red Blood Count 3.54 M/mm3 (4.6-6.2); White Blood Count 8.3 K/mm3 (4.4-11.0)
[2023-03-07 07:21] LABS: Anion Gap 3 (5-15); BUN 32 mg/dL (7-18); BUN/Creat Ratio 13.5 RATIO (10-20); Calcium,Total 8.8 mg/dL (8.5-10.1); Chloride 104 mmol/L (98-107); Creatinine, Serum 2.37 mg/dL (0.70-1.30); EST Glomerular Filtration Rate 29 mL/min (>60); Est Glom Filt Rate - Afr Amer 35 mL/min (>60); Estimated Creatinine Clearance 27.76 ml/min; Glucose 113 mg/dL (74-106); Potassium 3.4 mmol/L (3.5-5.1); Sodium Level 139 mmol/L (136-145)
[2023-03-07 08:04] VITALS: O2SAT 93
[2023-03-07] MEDS: Aspirin 325 MG Tablet PO (08:32)
[2023-03-07] MEDS: 0.9% Saline Lock 10 ML Syringe IV (08:33)
[2023-03-07 08:41] VITALS: PULSE 90
[2023-03-07] MEDS: Metoprolol(XL)Succ 50 MG Tablet PO (08:41)
[2023-03-07] MEDS: amLODIPine 10 MG Tablet PO (08:41)
[2023-03-07] MEDS: Furosemide 40 MG Tablet PO (08:41)
[2023-03-07] MEDS: Psyllium 1 PACKET PO (08:41)
[2023-03-07] MEDS: Heparin Injection (Vial) 5,000 UNIT/ML VIAL 5000 UNIT SC (08:43)
[2023-03-07 09:15] VITALS: BP 130/81; PULSE 90; RESP 18; TEMP 36.7; O2SAT 94
--- NOTE | 2023-03-07 11:13 | DCINST_ITS ---
Discharge Instructions Diet Discharge Diet: No restrictions Activity Discharge Activity: Return to Normal Activity Weight Bearing Status: Full weight bearing Follow Up Care Test Results: Test results from this visit will be discussed in further detail at your follow- up appointment, if applicable. Discharge Plan Admission Admit Date/Time: 03/04/23 22:17 Primary Reason for Your Visit: congestive heart failure Attending Provider: Juan Lopez Primary Care Provider: Juan Walker Consulting Providers: Melita Alfaro; Natali Horan Instructions Additional Instructions / Restrictions: Ask your family physician if you need to be on a cholesterol medicine Ask your vascular doctor what dose of aspirin you need to be taking Discharge Orders/Prescriptions Prescriptions: New furosemide 40 mg Tablet 40 mg PO DAILY Qty: 40 0RF pantoprazole [Protonix] 40 mg tablet,delayed release (DR/EC) 40 mg PO DAILY Qty: 30 0RF potassium chloride 10 mEq tablet extended release 20 meq PO DAILY Qty: 60 1RF Continued amlodipine 10 mg tablet 10 mg PO DAILY Patient Comments: TAKE 1 TABLET BY MOUTH EVERY DAY aspirin 325 mg capsule 325 mg PO DAILY metoprolol succinate 25 mg tablet extended release 24 hr 50 mg PO DAILY Patient Comments: TAKE 1 TABLET BY MOUTH EVERY DAY psyllium husk [Metamucil] 0.4 gram capsule 0.4 g PO DAILY Discontinued furosemide 20 mg tablet 20 mg PO QODAY Patient Comments: TAKE 1 TABLET BY MOUTH EVERY OTHER DAY Referrals / Follow Up: Juan Walker DO [Primary Care Provider] - Within 2 Weeks Disposition Disposition (needs filled in before D/C Order can be placed): Home, Self Care
--- NOTE | 2023-03-07 11:47 | DS.PCM_ITS ---
Providers Date of Admission: 03/04/23 Date of Discharge: 03/07/23 Primary Care Physician: Dr. Juan Walker DO Reason For Visit: ACUTE HYPOXIC RESPIRATORY FAILURE,CHF EXACERBATION Diagnosis Discharge Diagnosis (1) Acute hypoxic respiratory failure: Status: Acute Code(s): J96.01 - Acute respiratory failure with hypoxia Plan 1. Acute heart failure with preserved ejection fraction #2 hypoxia secondary to #1 #3 hypokalemia #4 essential hypertension #5 chronic kidney disease stage IIIb Medications at Discharge Home Medications amlodipine 10 mg tablet 10 mg PO DAILY 03/04/23 aspirin 325 mg capsule 325 mg PO DAILY 03/04/23 metoprolol succinate 25 mg tablet,extended release 24 hr 50 mg PO DAILY 03/04/23 psyllium husk 0.4 gram capsule (Metamucil) 0.4 g PO DAILY 03/04/23 furosemide 40 mg tablet 40 mg PO DAILY #40 tabs 03/07/23 pantoprazole 40 mg tablet,delayed release (Protonix) 40 mg PO DAILY #30 tabs 03/07/23 potassium chloride 10 mEq tablet,extended release 20 meq (2 x 10 mEq) PO DAILY #60 tabs 03/07/23 Hospital Course Operations None Procedures 2-D Echocardiogram Summary of Care Provided Minutes Spent on Discharge: 31 Hospital Course: This 73-year-old white male was seen in the emergency room at [facility] with complaints of dyspnea which started that day. Patient was placed on BiPAP due to evidence of increased work of breathing by the patient, workup in the emergency room included vitals which showed the patient to be afebrile, patient's pulse ox was 99% on a nonrebreather with 15 L and then he was transitioned over to BiPAP. Chest x-ray was performed which showed patchy airspace and interstitial opacities concerning for infection and/or edema, patient's white blood cell count was normal, beta natruretic peptide was el evated at 281 COVID and influenza antigens were negative, patient was given IV Lasix in the emergency room and he was admitted to PCU for acute congestive heart failure. Patient was able to be weaned off oxygen during his hospital stay, patient's echocardiogram which was obtained showed a normal ejection fraction of 65%, on 03/07/2023, he was seen and examined: On examination he appeared in good health and spirits. Patient was morbidly obese. vital signs as documented. Skin warm and dry and without overt rashes. Neck without JVD, neck was supple, trachea midline, thyroid was normal. Lungs clear bilaterally, normal air movement was noted. Heart exam notable for regular rhythm, normal sounds and absence of murmurs, rubs or gallops. Abdomen unremarkable and without evidence of organomegaly, masses, or abdominal aortic enlargement. Bowel sounds are present, abdomen is not distended. Extremities patient had mild pitting edema in both lower legs worse on the right, no cyanosis was noted, no clubbing was noted. Neuro: Cranial nerves II through XII are grossly intact, no focal motor deficits were noted, sensation to light touch and pinprick intact, motor exam 5/5 throughout. Psych: Patient is alert and oriented x3, he does not appear anxious or depressed, he does not appear agitated. Patient appears to be stable for discharge home on 03/07/2023 Weight / BMI Weight Weight: 137 kg Body Mass Index (BMI) 44.6 ABG / Lab / Microbiology Data 03/07/23 06:20 03/07/23 06:20 Laboratory: Laboratory Results - last 24 hr 03/07/23 06:20: WBC 8.3, RBC 3.54 L, Hgb 10.1 L, Hct 31.8 L, MCV 89.8, MCH 28.5, MCHC 31.8 L, RDW Std Deviation 44.2 H, RDW Coeff of Frankie 13.4, Plt Count 317, MPV 9.0, Immature Gran % (Auto) 0.400, Neut % (Auto) 71.6 H, Lymph % (Auto) 10.8 L, [place] % (Auto) 10.6 H, Eos % (Auto) 5.9 H, Baso % (Auto) 0.7, Absolute Neuts (auto) 6.0, Absolute Lymphs (auto) 0.90, Nucleated RBC % 0, Sodium 139, Potassium 3.4 L, Chloride 104, Carbon Dioxide 32.0, Anion Gap 3 L, BUN 32 H, Creatinine 2.37 H, Estim Creat Clear Calc 27.76, Est GFR (MDRD) Af Amer 35 L, Est GFR (MDRD) Non-Af 29 L, BUN/Creatinine Ratio 13.5, Glucose 113 H, Calcium 8.8 Microbiology: Microbiology 03/04/23 19:05 Nasal Secretion SARS-CoV-2 & FLU Antigen (Rapid) - Final D/C Instructions Discharge Diet: No restrictions Weight Bearing Status: Full weight bearing Meaningful Use Info Meaningful Use Diagnoses (Choose all that apply): CHF CHF RUIZ/ARB ordered at discharge?: No Reason RUIZ/ARB not ordered?: Not indicated Documented LVEF (%): 65 Discharge Plan Admission Admit Date/Time: 03/04/23 22:17 Primary Reason for Your Visit: congestive heart failure Attending Provider: Juna Lopez Primary Care Provider: Juan Walker Consulting Providers: Melita Alfaro; Natali Horan Instructions Additional Instructions / Restrictions: Ask your family physician if you need to be on a cholesterol medicine Ask your vascular doctor what dose of aspirin you need to be taking Discharge Orders/Prescriptions Prescriptions: New furosemide 40 mg Tablet 40 mg PO DAILY Qty: 40 0RF pantoprazole [Protonix] 40 mg tablet,delayed release (DR/EC) 40 mg PO DAILY Qty: 30 0RF potassium chloride 10 mEq tablet extended release 20 meq PO DAILY Qty: 60 1RF Continued amlodipine 10 mg tablet 10 mg PO DAILY Patient Comments: TAKE 1 TABLET BY MOUTH EVERY DAY aspirin 325 mg capsule 325 mg PO DAILY metoprolol succinate 25 mg tablet extended release 24 hr 50 mg PO DAILY Patient Comments: TAKE 1 TABLET BY MOUTH EVERY DAY psyllium husk [Metamucil] 0.4 gram capsule 0.4 g PO DAILY Discontinued furosemide 20 mg tablet 20 mg PO QODAY Patient Comments: TAKE 1 TABLET BY MOUTH EVERY OTHER DAY Referrals / Follow Up: Juan Walkre DO [Primary Care Provider] - Within 2 Weeks Disposition Disposition (needs filled in before D/C Order can be placed): Home, Self Care Charges/Coding Visit Charges Inpatient E&M: 81543 Disch Hosp >30min
[2023-03-07 12:49] VITALS: O2SAT 93; O2SAT 95
--- NOTE | 2023-03-11 08:32 | CCN.REFER ---
PATIENT ORIGINALLY AGREED TO CCN/PATIENT LINK. HE THEN DECLINED CCN/PATIENT LINK THE DAY THE HOME VISIT WAS SCHEDULED. STATES HE DOES NOT FEEL HE NEEDS ANYONE TO COME TO HIS HOME. 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 EDUCATION PROVIDED ON IMPORTANCE OF CCN/PATIENT LINK. PHONE NUMBER LEFT WITH PATIENT IF HE CHANGES HIS MIND.
== END 2023-03-07 13:15 | disposition home or self-care (01) | DRG 291 ==
LOC: ED 21:34 → ICU 22:28 → PCU 03-06 16:36
PROVIDERS: Student in an Organized Health Care Education/Training Program; Admitting Provider Family Medicine; Emergency Provider Emergency Medicine; PCP Family Medicine; Visit Provider Internal Medicine
DX: I13.0 Hypertensive heart and chronic kidney disease with heart failure and stage 1 through stage 4 chronic kidney disease, or unspecified chronic kidney disease (principal); J96.01 Acute respiratory failure with hypoxia; I50.31 Acute diastolic (congestive) heart failure; Z68.42 Body mass index [BMI] 45.0-49.9, adult; N18.32 Chronic kidney disease, stage 3b; E66.01 Morbid (severe) obesity due to excess calories; I48.0 Paroxysmal atrial fibrillation; G47.33 Obstructive sleep apnea (adult) (pediatric); E78.5 Hyperlipidemia, unspecified; E87.6 Hypokalemia; R73.9 Hyperglycemia, unspecified; Z87.891 Personal history of nicotine dependence; Z79.82 Long term (current) use of aspirin; Z79.899 Other long term (current) drug therapy
CPT/HCPCS: 36415; 71045; 80048; 80053; 80061; 82803; 83735; 83880; 84145; 84443; 84484; 85025; 87428; 93005; 93306; 94002; 94668; 97161; 97165; 97802; 99285; A4216; J1940